=== PATIENT | female | born 1995 | race Caucasian/White ===

== ENCOUNTER 2017-08-13 15:29 | Emergency (ER) | payer BC ==
[2017-08-13 16:45] VITALS: BP 130/92
--- NOTE | 2017-08-13 16:57 | UC ---
Back Pain HPI - HPI Summary HPI Summary: 21F presents with back pain for 4 days. She states she bent down to grab something and her back gave out. She states advil and heat help but she has been taking advil so much she feels that she is developing a gastritis. She denies any numbness or tingling down legs or pain there. She denies any fever. She denies any loss of bowel or bladder or saddle anaesthesia. She denies any history of back pain. - History of Current Complaint Chief Complaint: UCBackPain Stated Complaint: BACK PAIN 4 DAYS Time Seen by Provider: 08/13/17 16:48 Hx Last Menstrual Period: 07/29/17 Pain Intensity: 0 - Allergies/Home Medications Allergies/Adverse Reactions: Allergies Allergy/AdvReac Type Severity Reaction Status Date / Time No Known Allergies Allergy Verified 08/13/17 16:46 Home Medications: Home Medications Norethindrone/Eth Est .12/16NF [Junel .12/16 (NF)] 08/13/17 [History] [place] (Mariela [place]) [P[place] Extract 500 mg] 08/13/17 [History] PMH/Surg Hx/FS Hx/Imm Hx Endocrine History: Other Other Endocrine History: no DM Respiratory History: Other Other Respiratory History: no asthma - Surgical History Surgical History: None - Family History Known Family History: Positive: Hypertension - Social History Alcohol Use: Occasionally Substance Use Type: None Smoking Status (MU): Never Smoked Tobacco Review of Systems Constitutional: Negative Musculoskeletal: Other: - back pain All Other Systems Reviewed And Are Negative: Yes Physical Exam Triage Information Reviewed: Yes Appearance: Well-Appearing Vital Signs: Initial Vital Signs Temp 98.3 F 08/13/17 16:40 Pulse 84 08/13/17 16:40 Resp 18 08/13/17 16:40 BP 130/92 08/13/17 16:40 Pulse Ox 100 08/13/17 16:40 Vital Signs Reviewed: Yes Eye Exam: Normal ENT Exam: Normal Respiratory: Positive: Lungs clear, Normal breath sounds Cardiovascular: Positive: RRR Abdominal Exam: Normal Musculoskeletal: Positive: Strength Intact - back, Other: - tenderness lower back, neg SLR, sensation grossly intact Neurological: Positive: Other: - patella intact Psychological Exam: Normal Skin Exam: Normal Diagnostics - Radiology back Xray Interpretation: Positive (See Comments) Radiology Interpretation Completed By: Radiologist Back Pain Course/Dx - Course Course Of Treatment: 21F presents with back pain for 4 days. She states she bent down to grab something and her back gave out. She states advil and heat help but she has been taking advil so much she feels that she is developing a gastritis. She denies any numbness or tingling down legs or pain there. She denies any fever. She denies any loss of bowel or bladder or saddle anaesthesia. She denies any history of back pain. on exam tenderness lower back. neurovascular intact. neg SLR. xray back loss height at T1 but this is not where pain is. will treat with flexeril and famotidine to prevent gastritis. will have establish care with primary to follow up about elevated blood pressure in pre-htn range. patient understand and agrees with plan. - Differential Dx/Diagnosis Differential Diagnosis/HQI/PQRI: Herniated Disc, Strain, Sprain Provider Diagnoses: back pain Discharge - Discharge Plan Condition: Good Disposition: HOME Prescriptions: Cyclobenzaprine TAB* [Flexeril 10 MG TAB*] 10 mg PO TID PRN #15 tab PRN Reason: Pain Famotidine TAB* [Pepcid 20 MG TAB*] 20 mg PO DAILY #10 tab Patient Education Materials: Back Pain (ED) Referrals: Non Staff,Doctor [Primary Care Provider] - Additional Instructions: Take muscle relaxers three times a day Use ibuprofen or Tylenol for pain every 6 hours Take famotidine once a day if taken NSAID ice/heat area, move as much as possible Return to ED if develop any new or worsening symptoms
--- NOTE | 2017-08-13 17:57 | RAD ---
Indication: Back pain. 5 views of lumbar spine demonstrate vertebral bodies to be normal in height. There is minimal wedge deformity at L1. Age of this is indeterminate. IMPRESSION: Mild decrease in height of L1 age of which is indeterminate. No fracture is identified.
== END 2017-08-13 18:17 | disposition home or self-care (01) ==
LOC: UCCORT 15:29
DX: M54.9 Dorsalgia, unspecified (principal)
CPT/HCPCS: 72110; 99202; G0463